=== PATIENT | female | born 1985 | race African-American/Black ===

== ENCOUNTER 2025-01-07 09:33 | Emergency (ER) | payer OTHER ==
[~2025-01-07] VITALS: Ht 170.2 cm; Wt 72.7 kg
[2025-01-07 09:45] VITALS: TEMP 98.7
[2025-01-07 10:38] LABS: COVID AG,FIA SOURCE NASAL SWAB
[2025-01-07 11:17] LABS: SARS-COV2 (COVID) ANTIGEN,FIA Negative (Negative)
[2025-01-07 11:18] LABS: INFLUENZA TYPE A NEGATIVE FOR TYPE A (NEGATIVE); INFLUENZA TYPE B NEGATIVE FOR TYPE B (NEGATIVE)
[2025-01-07] MEDS: GuaiFENesin/D-METHORPHAN [SUGAR-FREE] 200-20MG/10 ML SYRUP UDCUP PO ONE (11:34)
[2025-01-07] MEDS: BENZONATATE 100 MG CAPSULE PO ONE (11:34)
[2025-01-07] MEDS: ACETAMINOPHEN 500 MG TABLET PO ONE (11:35)
[2025-01-07] MEDS ORDERED: GUAIFDM PO (12:01)
[2025-01-07] MEDS ORDERED: ACET-2080 PO (12:01)
[2025-01-07] MEDS ORDERED: BENZ-227 PO (12:01)
[2025-01-07] MEDS ORDERED: IBUP-1554 PO (12:01)
[2025-01-07 12:24] VITALS: BP 125/74; PULSE 95; RESP 18; O2SAT 96
== END 2025-01-07 12:25 | disposition home or self-care (01) ==
LOC: EMS 09:38
DX: J06.9 Acute upper respiratory infection, unspecified (principal); Z20.822 Contact with and (suspected) exposure to COVID-19
CPT/HCPCS: 87804; 99284; Z7502; Z7610